=== PATIENT | female | born 1950 | race Asian ===

== ENCOUNTER 2017-01-06 10:07 | Day surgery (SDC) | payer OTHER, BC ==
[2017-01-02 12:38] VITALS: BMI 24.4
[2017-01-06] MEDS ORDERED: PROPOFOL 20 ML ONE (10:50)
[2017-01-06 13:32] VITALS: BP 110/65; PULSE 76; TEMP 98
--- NOTE | 2017-01-08 11:36 | PATH ---
Surgical Pathology Report Patient Name: CHELY MEDINA [facility]. Rec. #: [id number] /Age/Gender: 1950 (Age: 66) / F Account: [id number] Location: [facility]-ENDOSCOPY Taken: 01/06/2017 Received: 01/06/2017 Reported: 01/08/2017 Physicians: Victorino Herron M.D. Specimen(s) Received BX RIGHT COLON Clinical History Rule out colon cancer Polyp Final Diagnosis COLON, RIGHT, BIOPSY: TUBULAR ADENOMA. Electronically Signed Raza Kinney M.D. Gross Description Received in formalin, labeled "right colon" is a floyd, irregular portion of soft tissue measuring 0.2 cm. in greatest dimension. The specimen is submitted in toto in one cassette. 01/07/201701/07/2017
== END 2017-01-06 13:15 | disposition home or self-care (01) ==
LOC: FASU-ENDO 10:07
PROVIDERS: ATTEND Internal Medicine Gastroenterology
PROC: 0DBK8ZX Excision of Ascending Colon, Via Natural or Artificial Opening Endoscopic, Diagnostic (ICD-10-PCS; principal; 2017-01-06 12:07)
DX: Z12.11 Encounter for screening for malignant neoplasm of colon (principal); D12.2 Benign neoplasm of ascending colon; K57.30 Diverticulosis of large intestine without perforation or abscess without bleeding
CPT/HCPCS: 88305-TC

== ENCOUNTER 2023-02-27 07:22 | Day surgery (SDC) | payer OTHER, BC ==
[2023-02-25 10:25] VITALS: BMI 25.2
[2023-02-27 09:50] VITALS: TEMP 98
[2023-02-27 10:00] VITALS: RESP 16
[2023-02-27 10:01] VITALS: BP 124/75; PULSE 74
== END 2023-02-27 10:24 | disposition home or self-care (01) ==
LOC: FASU-ENDO 07:22
PROVIDERS: ATTEND Internal Medicine Gastroenterology
PROC: 0DJD8ZZ Inspection of Lower Intestinal Tract, Via Natural or Artificial Opening Endoscopic (ICD-10-PCS; principal; 2023-02-27 09:18)
DX: Z12.11 Encounter for screening for malignant neoplasm of colon (principal); Z86.010 Personal history of colon polyps; K57.30 Diverticulosis of large intestine without perforation or abscess without bleeding